=== PATIENT | male | born 1960 | race Caucasian/White ===

== ENCOUNTER → 2016-11-21 | Outpatient (CLI) | payer BC ==
[~2016-11-21] MED LIST: ASPIRIN325 MG PO; CIPRO250 MG PO; FLAGYL500 MG PO; LIPITOR80 MG PO; LOFIBRA200 MG PO; NORCO 5-325 TA1 EACH PO; PERCOCET 325 MG1 TA7 PO; PLAVIX75 MG PO; TOBRADEX 0.1%-0.5 ML OPH; ZOCOR; [UNRECOGNIZED DRUG - OTHER]
[2016-11-21 08:28] LABS: CHOLESTEROL 202 mg/dL (<200); HDL CHOLESTEROL 49 mg/dl (40-60); LDL CHOLESTEROL 108 mg/dL (9-159); SGOT/AST 33 IU/L (3-35); SGPT/ALT 48 U/L (12-78); TRIGLYCERIDES 225 mg/dl (<150); VLDL CHOLESTEROL 45 mg/dL (6-40)
== END | disposition home or self-care (01) ==
LOC: LAB 07:35
PROVIDERS: Internal Medicine Interventional Cardiology
DX: I25.10 Atherosclerotic heart disease of native coronary artery without angina pectoris (principal); E78.2 Mixed hyperlipidemia

== ENCOUNTER → 2019-03-13 | Day surgery (SDC) | payer OTHER ==
[~2019-03-13] VITALS: Ht 193 cm; Wt 108.9 kg
--- NOTE | ~2019-03-13 | O ---
[place], [place] OPERATIVE NOTE NAME: [facility] #: [id number] UNIT #: [id number] ROOM: DOCTOR: NEGRA GARRETT MD BIRTHDATE: [birth year] DOS: 03/13/2019 GASTROENDOSCOPIC REPORT INDICATIONS: The patient is a 58-year-old patient who has presented with a concern about colonic screening, undergone investigation. ALLERGIES: No known medication. FAMILY HISTORY: Noncontributory. PAST MEDICAL HISTORY: Coronary artery disease, status post cardiac stent, hemorrhoidectomy. SOCIAL HISTORY: Smoker, nonalcohol consumer except in the rare basis. PROCEDURE: Today's procedure part of investigation is colonoscopy. PREMEDICATION: Propofol. SCOPE: Olympus forward-viewing colonoscope 10L video. REPORT: After putting the patient in left lateral position and application of lubricant to the scope, the scope was introduced. Thereafter, under direct visualization, advanced through the length of colon without difficulty. Base of cecum was explored valve was defined. Diverticulosis of sigmoid colon was noticed. Air was suctioned out. The patient was extubated, tolerated the procedure well. IMPRESSION: Diverticulosis, otherwise normal colonoscopic examination. PLAN: High fiber diet. ACTIVITY: Ad varsha. FOLLOWUP: Routinely with you in office, p.r.n. visit with us in [facility]. [place], [place] OPERATIVE NOTE NAME: [facility] #: [id number] UNIT #: [id number] ROOM: DOCTOR: NEGRA GARRETT MD BIRTHDATE: [birth year] NEGRA GARRETT MD CM:OPRECORD:OPERATIVE NOTE 1145 [id number] NEGRA GARRETT MD 03/13/19 1212 interface
[2019-03-13 10:08] VITALS: BP 135/84
[2019-03-13 11:25] VITALS: BP 117/81
[2019-03-13 11:40] VITALS: BP 128/77
[2019-03-13 11:50] VITALS: BP 121/76
== END | disposition home or self-care (01) ==
LOC: SDC 03-11 10:15
DX: Z12.11 Encounter for screening for malignant neoplasm of colon (principal); K57.30 Diverticulosis of large intestine without perforation or abscess without bleeding; I25.10 Atherosclerotic heart disease of native coronary artery without angina pectoris; E78.00 Pure hypercholesterolemia, unspecified; F17.210 Nicotine dependence, cigarettes, uncomplicated; Z95.5 Presence of coronary angioplasty implant and graft; Z83.3 Family history of diabetes mellitus; Z82.49 Family history of ischemic heart disease and other diseases of the circulatory system